=== PATIENT | female | born 1960 | race Caucasian/White ===

== ENCOUNTER 2021-05-30 01:15 | Emergency (ER) | payer BC ==
[2021-05-30 02:20] VITALS: PULSE 110
[2021-05-30] MEDS ORDERED: Ketorolac 10 MG Tab PO ONE (02:42)
[2021-05-30] MEDS ORDERED: Furosemide 40 MG Tab PO ONE (04:00)
[2021-05-30 04:10] VITALS: BP 144/102
[2021-05-30] MEDS ORDERED: Morphine 4 MG/ML VIAL IVPUSH ONE (04:33)
[2021-05-30] MEDS: Sodium Chloride 0.9% 10 ML Syringe FLUSH PRN ×2 (04:40→04:48)
== END 2021-05-30 05:05 ==
LOC: FB.ED 01:15
DX: N20.0 Calculus of kidney (principal); I11.0 Hypertensive heart disease with heart failure; I50.9 Heart failure, unspecified; E11.9 Type 2 diabetes mellitus without complications; R06.02 Shortness of breath; I48.91 Unspecified atrial fibrillation; R31.9 Hematuria, unspecified; E66.01 Morbid (severe) obesity due to excess calories; Z68.30 Body mass index [BMI] 30.0-30.9, adult; Z91.030 Bee allergy status
CPT/HCPCS: 36415; 71045; 74176; 80053; 81001; 83880; 84484; 85025; 85610; 93005; 96374; 99285; A9270; J2270

== ENCOUNTER 2022-09-28 22:08 | Emergency (ER) | payer BC ==
[2022-09-28] MEDS ORDERED: traMADol 50 MG Tab PO ONE (22:09)
[2022-09-28] MEDS ORDERED: HYDROmorphone 2 MG/ML SDV IM ONE (23:20)
[2022-09-28] MEDS ORDERED: Ondansetron 4 MG Tab.DIS PO ONE (23:20)
[2022-09-29 01:30] VITALS: BP 150/81; PULSE 64
== END 2022-09-28 23:59 | disposition home or self-care (01) ==
LOC: FB.ED 22:08
DX: S42.291A Other displaced fracture of upper end of right humerus, initial encounter for closed fracture (principal); I48.91 Unspecified atrial fibrillation; I10 Essential (primary) hypertension; M19.90 Unspecified osteoarthritis, unspecified site; E11.9 Type 2 diabetes mellitus without complications; E66.9 Obesity, unspecified; Z91.030 Bee allergy status; Z79.01 Long term (current) use of anticoagulants; Z79.84 Long term (current) use of oral hypoglycemic drugs; Z68.39 Body mass index [BMI] 39.0-39.9, adult; W19.XXXA Unspecified fall, initial encounter; Y92.009 Unspecified place in unspecified non-institutional (private) residence as the place of occurrence of the external cause
CPT/HCPCS: 73030; 96372; 99283; A9270; J1170; Q0162